=== PATIENT | female | born 2000 | race African-American/Black ===

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

== ENCOUNTER → 2022-02-18 | Outpatient (CLI) | payer OTHER | END | disposition home or self-care (01) | LOC: RADECHMAIN 08:04 | PROVIDERS: ATTEND Family Medicine | DX: R00.2 Palpitations (principal) | CPT/HCPCS: 93270 ==

== ENCOUNTER → 2022-05-07 | Outpatient (CLI) | payer OTHER ==
--- NOTE | 2022-05-07 15:01 | P.SLEEP ---
History of Present Illness DATE: 05/07/2022 CONSULTATION/NEW PATIENT EVALUATION HISTORY OF PRESENT ILLNESS/SLEEP-WAKE EVALUATION: 22 year old lady had been evaluated in the sleep center for possible obstructive sleep apnea hypopnea syndrome. SLEEP SCHEDULE: Usually sleep schedule 12-3 AM until 9-10.30 a.m. FALLING ASLEEP: Usually no significant problems with falling asleep. DURING SLEEP: Patient wakes up from sleep once with nocturia. Questionable positive history of hypnogogical hallucinations No history of sleep paralysis or cataplexy. DURING THE DAY/WAKE STATE: Sometimes patient wakes up with headaches.. Sharon sleepiness scale is 2. Usually patient doesn't take naps. PAST MEDICAL HISTORY: Asthma, headaches, acid reflux, social anxiety, amenorrhea. PAST SURGICAL HISTORY: None. MEDICATIONS: None. SOCIAL HISTORY: Negative for smoking or using alcohol. FAMILY HISTORY: Hypertension, stroke, heart problems, lung problems. REVIEW OF SYSTEMS: Awakenings from sleep, headaches, amenorrhea. No fevers. No double vision. No recent chest pain. No shortness of breath. No abdominal pain. No bleeding episodes. No blood in urine. No seizure episodes. PHYSICAL EXAMINATION: GENERAL: A pleasant patient without any distress. VITAL SIGNS: BP 153/90, HR 135, RR 16, weight 309 pounds, height 5 foot 4 inches, body mass index 53. HEENT: PERRLA, EOMI. Evaluation of oropharynx showed tongue protrudes midline, low position of soft palate Mallampati2, short distance between soft palate and posterior pharyngeal wall. NECK: Supple. No JVD. Thyroid is not palpable. 21-1/2 inches in circumference. LUNGS: Clear to percussion and to auscultation. Good air exchange. No wheezing or rhonchi. HEART: S1, S2 regular. No murmurs, gallops or rubs. ABDOMEN: Soft and nontender. Bowel sounds are present. No organomegaly appreciated. Obese EXTREMITIES: No clubbing or cyanosis. FLEXOGRAPHIC PRESS OPERATOR: Awake, alert, and oriented x3. Cranial nerves 2 to 7 intact. There is no fasciculation or atrophy noted. No focal deficits observed. ASSESSMENT: 1. Awakenings from sleep with nocturia. Sometimes headaches in the morning. Extremely wide neck 21-1/2 inches. Obstructive sleep apnea hypopnea syndrome. 2. Obesity body mass index 53.2. 3 headaches. 4. Hypertension in the office today. 5 history of social anxiety. 6. History of asthma. 7. Amenorrhea. 8. Sleep delay. PLAN: 1. Polysomnography for evaluation of patient's breathing during sleep. 2. CPAP/BiPAP titration if sleep study confirms obstructive sleep apnea- hypopnea syndrome. 3. Preferable position during sleep on the side. 4. No driving if patient feels any sleepiness. Patient is aware of civil and criminal liability for unsafe driving. 5. Sleep hygiene with regular sleep time for at least 7.5-8 hours. 6. Watching and losing weight. Thank you very much for referring this patient for consultation. Sincerely, Live Moyer MD, PhD, FAASM. Diplomat of [place] [employer], Sleep Medicine Board by [place] [employer] [place] [employer] [facility] Past Medical History Past Medical History: GERD/Reflux Additional Past Medical History / Comment(s): aspergers, migraines, heart murmur History of Any Multi-Drug Resistant Organisms: None Reported Additional Past Surgical History / Comment(s): right eye surgery Past Psychological History: Anxiety Past Alcohol Use History: None Reported Past Drug Use History: None Reported Medications and Allergies Home Medications Medication Instructions Recorded Confirmed Type Omeprazole 20 mg PO HS 05/08/14 05/10/17 History Albuterol Inhaler [Ventolin 1 - 2 puff INHALATION RT-Q6H PRN 01/15/15 05/10/17 History Inhaler] Aspirin 325 - 650 mg PO QID PRN 05/10/17 05/10/17 History Ibuprofen [Motrin] 200 - 400 mg PO Q6HR PRN 05/10/17 05/10/17 History Allergies Allergy/AdvReac Type Severity Reaction Status Date / Time fluconazole [From Diflucan] Allergy Rash/Hives Verified 05/10/17 18:45 pertussis vaccine,adsorbed Allergy Rash/Hives Verified 05/10/17 18:45 [Pertussis Vaccine,Adsorbed] Sleep Note - Sleep Note Sleep Note: Temperature: Pulse Rate: Respiratory Rate: Blood Pressure: SpO2: Height: Weight: BMI: Neck Circumference:
== END | disposition home or self-care (01) ==
LOC: SLEEP 14:16
PROVIDERS: ATTEND Internal Medicine
DX: Z53.9 Procedure and treatment not carried out, unspecified reason (principal)

== ENCOUNTER → 2022-05-15 | Outpatient (CLI) | payer OTHER ==
--- NOTE | 2022-05-15 09:14 | US ---
EXAMINATION TYPE: US abdomen complete DATE OF EXAM: 05/15/2022 COMPARISON: NONE CLINICAL HISTORY: R10.9 ABD PAIN. LUQ pain for 3 weeks in morbidly obese patient TECHNIQUE: Multiple sonographic images of the abdomen are obtained. FINDINGS: EXAM MEASUREMENTS: Liver Length: 18.4 cm Gallbladder Wall: 0.3 cm CBD: 0.5 cm Spleen: 11.9 cm Right Kidney: 9.2 x 4.1 x 5.1 cm Left Kidney: 10.0 x 7.0 x 5.6 cm CLERICAL AND OFFICE SUPPORT WORKERS NOTES: large habitus severely limits exam Pancreas: wnl Liver: difficult to penetrate Gallbladder: wnl Evidence for sonographic Siddiqi's sign: no CBD: wnl Spleen: wnl Right Kidney: limited views appeared wnl Left Kidney: wnl Upper IVC: wnl Abd Aorta: wnl The intrahepatic portion of the IVC and proximal abdominal aorta are within normal limits. There is no evidence of cholelithiasis. Common bile duct is unremarkable. The visualized portions of the coffman creas are homogenous. The spleen is unremarkable. Kidneys are symmetric and free of hydronephrosis. No renal lesions are seen. IMPRESSION: Hepatic steatosis
== END | disposition home or self-care (01) ==
LOC: RADUSWWP 08:16
PROVIDERS: ATTEND Family Medicine
DX: R10.9 Unspecified abdominal pain (principal)
CPT/HCPCS: 76700

== ENCOUNTER → 2023-09-06 | Outpatient (CLI) | payer BC, OTHER ==
--- NOTE | 2023-09-06 17:32 | US ---
EXAMINATION TYPE: US liver DATE OF EXAM: 09/06/2023 COMPARISON: 05/15/2022 CLINICAL INDICATION: Female, 23 years old with history of R94.5 ABNORMAL RESULTS OF LIVER FUNCTION ST UDIES; TECHNIQUE: Multiple sonographic images of the right upper quadrant are obtained. FINDINGS: EXAM MEASUREMENTS: Liver Length: 17.5 cm Gallbladder Wall: 0.2 cm CBD: 0.4 cm Right Kidney: 7.6 x 3.5 x 4.4 cm Crochet Beader notes:Difficult and limited study due to morbidly obese patient Pancreas: obscured by overlying midline bowel gas Liver: difficult to penetrate, mildly heterogeneous Gallbladder: wnl Evidence for sonographic Siddiqi's sign: no CBD: visualized portions wnl, limited by overlying bowel gas Right Kidney: appears small in size IMPRESSION: There may be at least mild hepatic steatosis. Correlate with LFTs, lipid profile, patient risk factor s. No gallstones or biliary ductal dilatation.
== END | disposition home or self-care (01) ==
LOC: RADUSWWP 09:34
PROVIDERS: ATTEND Family Medicine
DX: R94.5 Abnormal results of liver function studies (principal)
CPT/HCPCS: 76705